=== PATIENT | female | born 1955 | race Caucasian/White ===

== ENCOUNTER 2017-06-28 10:02 | Day surgery (SDC) | payer BC ==
[~2017-06-28] VITALS: Ht 162.6 cm; Wt 76.3 kg
[~2017-06-28 10:02] MED LIST: LEVO-T75 MCG PO; Omeprazole20 M1 PO; Prilosec10 M1 PO
[2017-06-28] MEDS ORDERED: ZOLP6.25 PO (10:32)
== END 2017-06-28 12:30 | disposition home or self-care (01) ==
LOC: ORSCSDS 10:02
PROVIDERS: Internal Medicine Gastroenterology
PROC: 0D758ZZ Dilation of Esophagus, Via Natural or Artificial Opening Endoscopic (ICD-10-PCS; principal; 2017-06-28 11:15)
PROC: 0DB58ZX Excision of Esophagus, Via Natural or Artificial Opening Endoscopic, Diagnostic (ICD-10-PCS; principal; 2017-06-28 11:15)
DX: K22.70 Barrett's esophagus without dysplasia (principal); K44.9 Diaphragmatic hernia without obstruction or gangrene; K57.30 Diverticulosis of large intestine without perforation or abscess without bleeding; R13.10 Dysphagia, unspecified; Z79.899 Other long term (current) drug therapy
CPT/HCPCS: 88305; 88312; J7120

== ENCOUNTER → 2018-02-11 | Outpatient (CLI) | payer BC ==
[~2018-02-11] MED LIST changes: +CIPR500 PO; +CITA20 PO; +Flovent 110 MCG12 GM INH; +ZOLP6.25 PO
== END | disposition home or self-care (01) ==
LOC: LAB EV 14:31
DX: N39.0 Urinary tract infection, site not specified (principal)
CPT/HCPCS: 87077; 87086; 87186

== ENCOUNTER 2018-02-14 10:08 | Day surgery (SDC) | payer BC ==
[~2018-02-14] VITALS: Ht 162.6 cm; Wt 69.7 kg
[~2018-02-14 10:08] MED LIST changes: -CIPR500 PO; -CITA20 PO; -Flovent 110 MCG12 GM INH
[2018-02-14] MEDS ORDERED: CIPR500 PO (10:59)
[2018-02-14] MEDS ORDERED: Flovent 110 MCG12 GM INH (11:00)
[2018-02-14] MEDS ORDERED: CITA20 PO (11:01)
== END 2018-02-14 12:34 | disposition home or self-care (01) ==
LOC: ORSCSDS 10:08
PROVIDERS: Internal Medicine Gastroenterology
PROC: 0D758ZZ Dilation of Esophagus, Via Natural or Artificial Opening Endoscopic (ICD-10-PCS; principal; 2018-02-14 11:30)
PROC: 0DB58ZX Excision of Esophagus, Via Natural or Artificial Opening Endoscopic, Diagnostic (ICD-10-PCS; principal; 2018-02-14 11:30)
DX: K22.70 Barrett's esophagus without dysplasia (principal); R13.14 Dysphagia, pharyngoesophageal phase; K22.2 Esophageal obstruction; K20.0 Eosinophilic esophagitis; K29.70 Gastritis, unspecified, without bleeding; K44.9 Diaphragmatic hernia without obstruction or gangrene; Z79.899 Other long term (current) drug therapy
CPT/HCPCS: 87081; 88305; J7120

== ENCOUNTER 2022-12-23 07:41 | Day surgery (SDC) | payer OTHER ==
[~2022-12-23] VITALS: Ht 165.1 cm; Wt 89.8 kg
[~2022-12-23 07:41] MED LIST changes: +CIPR500 PO; +CITA20 PO; +Flovent 110 MCG12 GM INH
[2022-12-23 09:34] VITALS: BP 130/77
--- NOTE | 2022-12-23 09:36 | NUR ---
12/23/22 0936 Beti Langford IV DC'D CATH INTACT. PT TOLERATED WELL. COBAN/GAUZE APPLIED
== END 2022-12-23 09:36 | disposition home or self-care (01) ==
LOC: ORSCSDS 07:41
PROVIDERS: Internal Medicine Gastroenterology
PROC: 0D757ZZ Dilation of Esophagus, Via Natural or Artificial Opening (ICD-10-PCS; principal; 2022-12-23 09:00)
PROC: 0DB58ZX Excision of Esophagus, Via Natural or Artificial Opening Endoscopic, Diagnostic (ICD-10-PCS; principal; 2022-12-23 09:00)
DX: R13.14 Dysphagia, pharyngoesophageal phase (principal); K20.0 Eosinophilic esophagitis; K22.2 Esophageal obstruction; K44.9 Diaphragmatic hernia without obstruction or gangrene; Z79.899 Other long term (current) drug therapy
CPT/HCPCS: 88305; 88312; J2704; J7120